=== PATIENT | male | born 1960 | race Caucasian/White ===

== ENCOUNTER 2017-09-21 09:48 | Emergency (ER) | payer MEDICARE ==
[2017-09-21] MEDS ORDERED: diPHENhydraMINE PO* 50 MG PO ONE (11:04)
[2017-09-21] MEDS ORDERED: Metoclopramide IV* 5 MG/ML 2 ML VIAL IV ONE (11:04)
[2017-09-21] MEDS ORDERED: NS 0.9% 1000 ML* 1,000 ML IV ONE (11:04)
[2017-09-21] MEDS ORDERED: Ketorolac INJ* 30 MG/ML 1 ML VIAL IV ONE (11:04)
[2017-09-21] MEDS ORDERED: diPHENhydraMINE IV* 50 MG/ML 1 ml VIAL (BENADRYL) ONE (11:20)
[2017-09-21] MEDS ORDERED: diPHENhydraMINE IV* 50 MG/ML 1 ml VIAL (BENADRYL) IV ONE (11:29)
[2017-09-21 13:02] VITALS: BP 115/77
--- NOTE | 2017-09-21 21:42 | ED ---
Jana Clement Thomas, scribed for Juan Manuel Banks MD on 09/21/17 at 1111 . Headache - HPI Summary HPI Summary: The patient is a 57 year old male with a history of migraines complaining of a migraine headache that began yesterday. The pain is located behinds his eyes, which is typical for his migraines. The pain is described as sharp. He also complains of nausea and photophobia. The patient denies nasal discharge or eye watering. His migraines are usually relieved within a day. He gets 1-2 migraines per month. He is on methotrexate and omeprazole. - History Of Current Complaint Chief Complaint: EDHeadache Stated Complaint: HEADACHE Time Seen by Provider: 09/21/17 10:40 Hx Obtained From: Patient Onset/Duration: Started days ago - 1, Still Present Currently Pain Is: Severe Timing: Constant Character: Sharp Location of Headache: Other: - Behind eyes Aggravating Factor: Bright Lights Allevating Factors: Nothing Associated Signs And Symptoms: Other (Noted In Comments) - Nausea, photophobia; NEGATIVE: nasal discharge, eye watering - Allergies/Home Medications Allergies/Adverse Reactions: Allergies Allergy/AdvReac Type Severity Reaction Status Date / Time No Known Allergies Allergy Verified 09/21/17 10:08 Home Medications: Home Medications DULoxetine DR CAP* [Cymbalta CAP*] 30 mg PO QAM 09/21/17 [History Confirmed 01/31] DULoxetine DR CAP* [Cymbalta CAP*] 60 mg PO QPM 09/21/17 [History Confirmed 01/31] PMH/Surg Hx/FS Hx/Imm Hx Endocrine/Hematology History: Denies: Hx Diabetes Cardiovascular History: Denies: Hx Hypertension, Hx Pacemaker/ICD Respiratory History: Reports: Hx Asthma - A CHILD, Other Respiratory Problems /Disorders - CHRONIC MAXILLARY SINUSITIS GI History: Reports: Hx Gastroesophageal Reflux Disease - CONTROL WITH MEDICATION History: Reports: Hx Kidney Infection - HISTORY OF Sensory History: Reports: Hx Contacts or Glasses, Hx Hearing Aid - WILL REMOVE, 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 2005 and 2008 LIPOMA REMOVED FROM CHEST AREA, [place]. 2009 SINOSCOPY- SINUS SCOPING, [place]. 2010 COLONOSCOPY, [facility] Hx Anesthesia Reactions: No Infectious Disease History: Unable to Obtain/Confirm Infectious Disease History: Denies: Hx Clostridium Difficile, Hx Hepatitis, Hx Human Immunodeficiency Virus (HIV), Hx of Known/Suspected MRSA, Hx Shingles, Hx Tuberculosis, Hx Known/ Suspected VRE, Hx Known/Suspected VRSA, History Other Infectious Disease, Traveled Outside the [place] in Last 30 Days - Family History Known Family History: Positive: Other - Patient denies relevant FHx - Social History Lives: With Family Alcohol Use: None Substance Use Type: Reports: None Smoking Status (MU): Never Smoked Tobacco Review of Systems Negative: Fever Positive: Photophobia. Negative: Other - eye discharge Negative: Nasal Discharge Positive: Nausea Positive: Headache All Other Systems Reviewed And Are Negative: Yes Physical Exam - Summary Physical Exam Summary: Appearance: The patient is well-nourished in no acute distress and in no acute pain. Skin: The skin is warm and dry and skin color reflects adequate perfusion. HEENT: The head is normocephalic and atraumatic. The pupils are equal and reactive. The conjunctivae are clear and without drainage. He has photophobia. Nares are patent and without drainage. Mouth reveals moist mucous membranes and the throat is without erythema and exudate. The external ears are intact. The ear canals are patent and without drainage. The tympanic membranes are intact. Neck: the neck is supple with full range of motion and non-tender. There are no carotid bruits. There is no neck vein distension. Respiratory: Chest is non-tender. Lungs are clear to auscultation and breath sounds are symmetrical and equal. Cardiovascular: Heart is regular rate and rhythm. There is no murmur or rub auscultated. There is no peripheral edema and pulses are symmetrical and equal. Abdomen: The abdomen is soft and non-tender. There are normal bowel sounds heard in all four quadrants and there is no organomegaly palpated. Musculoskeletal: There is no back tenderness noted. Extremities are non-tender with full range of motion. There is good capillary refill. There is no peripheral edema or calf tenderness elicited. Neurological: Patient is alert and oriented to person, place and time. The patient has symmetrical motor strength in all four extremities. Cranial nerves are grossly intact. Deep tendon reflexes are symmetrical and equal in all four extremities. Psychiatric: The patient has an appropriate affect and does not exhibit any anxiety or depression. Triage Information Reviewed: Yes Vital Signs On Initial Exam: Initial Vitals Temp Pulse Resp BP Pulse Ox 98.2 F 60 16 112/84 98 09/21/17 10:09 09/21/17 10:09 09/21/17 10:09 09/21/17 10:09/21/17 10:09 Vital Signs Reviewed: Yes Diagnostics - Vital Signs Vital Signs Temp Pulse Resp BP Pulse Ox 09/21/17 10:09 98.2 F 60 16 112/84 98 - Laboratory Lab Statement: Any lab studies that have been ordered have been reviewed, and results considered in the medical decision making process. Re-Evaluation - Re-Evaluation First Eval Re-Evaluation Time: 12:38 Change: Improved Comment: He feels better, but there is still pressue behind his eyes. He will be discharged home. Headache Course/Dx - Course Course Of Treatment: Mr Baez presented with a typical migraine. He is on methotrexate. He got a dose of a 'migraine cocktail' (toradol, benedryl and reglan) as well as IV NS. He improved completely and requested D/C. The ketorolac may transiently increase his methotrexate levels. - Diagnoses Provider Diagnoses: Migraine Discharge - Sign-Out/Discharge Documenting (check all that apply): Discharge/Admit/Transfer - Discharge Plan Condition: Stable Disposition: HOME Patient Education Materials: Migraine Headache (ED) Referrals: Moni Linares NP [Primary Care Provider] - 3 Days Additional Instructions: Follow up with your primary care physician in three days. Return to the emergency department for any new or worsening symptoms. - Billing Disposition and Condition Condition: STABLE Disposition: HOME The documentation as recorded by the Jana shoemaker Thomas accurately reflects the service I personally performed and the decisions made by me, Juan Manuel Banks MD.
== END 2017-09-21 12:59 | disposition home or self-care (01) ==
LOC: ED 09:48
DX: G43.909 Migraine, unspecified, not intractable, without status migrainosus (principal)
CPT/HCPCS: 96361; 96374; 96375; 99282; A9270-GY; J1200; J1885; J2765

== ENCOUNTER 2019-03-18 09:53 | Emergency (ER) | payer MEDICARE ==
[2019-03-18] MEDS ORDERED: Butalb/Acetamin/Caff TAB* 1 TAB PO ONE (12:40)
[2019-03-18] MEDS ORDERED: NS 0.9% 1000 ML** 1,000 ML IV ONE (12:40)
[2019-03-18] MEDS ORDERED: Ibuprofen TAB* 600 MG PO ONE (12:41)
[2019-03-18] MEDS ORDERED: Magnesium Sulfate 1 GM IV* 1 GM/100 ML BAG IV ONE (12:42)
--- NOTE | 2019-03-18 12:49 | ED ---
Headache - HPI Summary HPI Summary: This pt is a 58 Y/O M presenting to [facility] accompanied by his with a CC of a migraine that is currently rated a 8/10 in severity and started last night at 1700 and has been worsening since the onset. The migraine is located behind his eyes. He states that he is currently lightheaded and has floaters but states that it is worse than his usual migraines. He states that he has had a Hx of migraines and vertigo but states that this migraine is worse than his usual ones (but does feel similar to when he was admitted before). He denies any N/V, SOB, CP, and fevers. He states that he is currently photophobic and that light makes his headache worse, he also gets floaters with his usual migraines. 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 He has a Hx of headaches and migraines. - History Of Current Complaint Chief Complaint: EDHeadache Stated Complaint: HEADACHE Time Seen by Provider: 03/18/19 12:36 Hx Obtained From: Patient Onset/Duration: Sudden Onset - 1700 03/17/19, Started days ago - 1, Still Present , Worse Since - onset Initially Headache Was: Mild Currently Pain Is: Current Pain Scale(0-10)= Timing: Constant Character: Pressure, Migraine Location of Headache: Frontal Aggravating Factor: Bright Lights Allevating Factors: Nothing Associated Signs And Symptoms: Negative - N/V, SOB, CP, and fevers, Sinus Pressure, Visual Changes - floaters, Other (Noted In Comments) - photophobia, lightheaded - Allergies/Home Medications Allergies/Adverse Reactions: Allergies Allergy/AdvReac Type Severity Reaction Status Date / Time No Known Allergies Allergy Verified 03/18/19 10:14 PMH/Surg Hx/FS Hx/Imm Hx Previously Healthy: Yes Endocrine/Hematology History: Denies: Hx Diabetes Cardiovascular History: Denies: Hx Hypertension, Hx Pacemaker/ICD Respiratory History: Reports: Hx Asthma - A CHILD, Other Respiratory Problems /Disorders - CHRONIC MAXILLARY SINUSITIS GI History: Reports: Hx Gastroesophageal Reflux Disease - CONTROL WITH MEDICATION History: Reports: Hx Kidney Infection - HISTORY OF Denies: Hx Dialysis Sensory History: Reports: Hx Contacts or Glasses, Hx Hearing Aid - WILL REMOVE, 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 2005 and 2008 LIPOMA REMOVED FROM CHEST AREA, [place]. 2009 SINOSCOPY- SINUS SCOPING, [place]. 2010 COLONOSCOPY, [facility] Hx Anesthesia Reactions: No Infectious Disease History: No Infectious Disease History: Denies: Hx Clostridium Difficile, Hx Hepatitis, Hx Human Immunodeficiency Virus (HIV), Hx of Known/Suspected MRSA, Hx Shingles, Hx Tuberculosis, Hx Known/ Suspected VRE, Hx Known/Suspected VRSA, History Other Infectious Disease, Traveled Outside the [place] in Last 30 Days - Family History Known Family History: Positive: Other - Patient denies relevant FHx - Social History Occupation: Retired Lives: With Family Alcohol Use: None Hx Substance Use: No Substance Use Type: Reports: None Hx Tobacco Use: No Smoking Status (MU): Never Smoked Tobacco Review of Systems Constitutional: Other - lightheadedness Negative: Fever Positive: Photophobia, Other - floaters Negative: Chest Pain Negative: Shortness Of Breath Negative: Vomiting, Nausea Positive: Headache All Other Systems Reviewed And Are Negative: Yes Physical Exam - Summary Physical Exam Summary: Constitutional: Well-developed, Well-nourished, Alert. (-) Distressed Skin: Warm, Dry HENT: Normocephalic; Atraumatic Eyes: Conjunctiva normal Neck: Musculoskeletal ROM normal neck. (-) JVD, (-) Stridor, (-) Nuchal rigidity Cardio: Rhythm regular, rate normal, Heart sounds normal; Intact distal pulses; Radial pulses are 2+ and symmetric. (-) Murmur Pulmonary/Chest wall: Effort normal. (-) Respiratory distress, (-) Wheezes, (-) Rales Abd: Soft, (-) tenderness, (-) Distension, (-) Guarding, (-) Rebound Musculoskeletal: (-) Edema Lymph: (-) Cervical adenopathy Neuro: Alert, Oriented x3, CN 2-12 grossly intact. No nystagmus, no dysmetria. Ambulates w steady gait. Psych: Mood and affect Normal Triage Information Reviewed: Yes Vital Signs On Initial Exam: Initial Vitals Temp Pulse Resp BP Pulse Ox 98.0 F 66 16 114/81 99 03/18/19 10:10 03/18/19 10:10 03/18/19 10:10 03/18/19 10:10 03/18/19 10:10 Vital Signs Reviewed: Yes Procedures - Sedation Patient Received Moderate/Deep Sedation with Procedure: No Diagnostics - Vital Signs Vital Signs Temp Pulse Resp BP Pulse Ox 03/18/19 11:42 97.6 F 63 14 112/80 97 03/18/19 10:10 98.0 F 66 16 114/81 99 - Laboratory Lab Statement: Any lab studies that have been ordered have been reviewed, and results considered in the medical decision making process. Re-Evaluation - Re-Evaluation 1 Re-Evaluation Time: 14:47 Change: Improved Comment: Pt states that he is feeling much better and expressed a desire to be discharged home. Headache Course/Dx - Course Course Of Treatment: 58 y/o male w hx migraines p/w migriane headache. History of headaches of similar type. This is not the worst headache patient has had, and no additional features today to suggest need for further workup on a truly emergent basis (imaging, LP, etc). Try IVF, motrin, reglan, Mg. - Diagnoses Provider Diagnoses: Migraine Discharge ED - Sign-Out/Discharge Documenting (check all that apply): Patient Departure - discharge - Discharge Plan Condition: Stable Disposition: HOME Patient Education Materials: Migraine Headache (ED) Referrals: Cody Giraldo MD [Primary Care Provider] - Additional Instructions: You were seen in ER for migraine headache. Please follow up with your neurologist. Please from for worsening of your headache, severe headaches, nausea vomiting, fevers or if you're concerned. It was a pleasure taking care of you today. - Billing Disposition and Condition Condition: STABLE Disposition: Home - Attestation Statements Document Initiated by Scribe: Yes Documenting Scribe: Lex Singh Provider For Whom Beronica is Documenting (Include Credential): Rosa Elena Figueroa MD Scribe Attestation: Lex Clement, scribed for Rosa Elena Figueroa MD on 03/18/19 at 1515. Scribe Documentation Reviewed: Yes Provider Attestation: The documentation as recorded by the Lex shoemakeranto accurately reflects the service I personally performed and the decisions made by me, Rosa Elena Figueroa MD Status of Beronica Document: Viewed
[2019-03-18] MEDS ORDERED: diPHENhydraMINE IV* 50 MG/ML 1 ml VIAL (BENADRYL) SLOW PUSH ONE (13:47)
[2019-03-18] MEDS ORDERED: guaiFENesin ER TAB 600 MG PO ONE (14:22)
[2019-03-18 15:05] VITALS: BP 120/80
== END 2019-03-18 15:03 | disposition home or self-care (01) ==
LOC: ED 09:53
DX: G43.909 Migraine, unspecified, not intractable, without status migrainosus (principal); K21.9 Gastro-esophageal reflux disease without esophagitis; F41.9 Anxiety disorder, unspecified
CPT/HCPCS: 96365; 96375; 99283; A9270-GY; J1200; J3475

== ENCOUNTER 2019-04-21 16:25 | Emergency (ER) | payer MEDICARE ==
[2019-04-21] MEDS ORDERED: diPHENhydraMINE IV* 50 MG/ML 1 ml VIAL (BENADRYL) IV ONE (19:35)
[2019-04-21] MEDS ORDERED: PROCHLORPERAZINE INJ 5 MG/ML 2 ML VIAL IV ONE (19:35)
[2019-04-21] MEDS ORDERED: NS 0.9% 1000 ML** 1,000 ML IV ONE (19:36)
[2019-04-21] MEDS ORDERED: Ketorolac INJ* 30 MG/ML 1 ML VIAL IV PUSH ONE (19:36)
--- NOTE | 2019-04-21 19:48 | ED ---
Headache - HPI Summary HPI Summary: 58 year old male presents with headache for the past couple days. He has a history of migraines. He states he had a similar headaches about a month ago. this is not the worst headache of his life. He states she's been having sinus congestion for the past couple weeks. He states that headache is in same location as typical migraines. He has been taking Mucinex without improvement in sinus congestion but it does not improve the headache. he denies any fever. no neck stiffness. He also has been issues with his right shoulder as his cortisone shot has wore off and things this is contributing to this headache. - History Of Current Complaint Chief Complaint: EDHeadache Stated Complaint: HEADACHE PER PT Time Seen by Provider: 04/21/19 19:28 - Allergies/Home Medications Allergies/Adverse Reactions: Allergies Allergy/AdvReac Type Severity Reaction Status Date / Time No Known Allergies Allergy Verified 04/21/19 16:31 PMH/Surg Hx/FS Hx/Imm Hx Endocrine/Hematology History: Denies: Hx Diabetes Cardiovascular History: Denies: Hx Hypertension, Hx Pacemaker/ICD Respiratory History: Reports: Hx Asthma - A CHILD, Other Respiratory Problems /Disorders - CHRONIC MAXILLARY SINUSITIS GI History: Reports: Hx Gastroesophageal Reflux Disease - CONTROL WITH MEDICATION History: Reports: Hx Kidney Infection - HISTORY OF Denies: Hx Dialysis Sensory History: Reports: Hx Contacts or Glasses, Hx Hearing Aid - WILL REMOVE, 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 2005 and 2008 LIPOMA REMOVED FROM CHEST AREA, [place]. 2009 SINOSCOPY- S[place]US SCOPING, [facility]. [place] [facility] [place] Anesthesia Reactions: No Infectious Disease History: No Infectious Disease History: Denies: Hx Clostridium Difficile, Hx Hepatitis, Hx Human Immunodeficiency Virus (HIV), Hx of Known/Suspected MRSA, Hx Shingles, Hx Tuberculosis, Hx Known/ Suspected VRE, Hx Known/Suspected VRSA, History Other Infectious Disease, Traveled Outside the [place] in Last 30 Days - Family History Known Family History: Positive: Other - Patient denies relevant FHx - Social History Alcohol Use: None Hx Substance Use: No Substance Use Type: Reports: None Hx Tobacco Use: No Smoking Status (MU): Never Smoked Tobacco Review of Systems Negative: Fever Negative: Chest Pain Negative: Shortness Of Breath Positive: Headache All Other Systems Reviewed And Are Negative: Yes Physical Exam Triage Information Reviewed: Yes Vital Signs On Initial Exam: Initial Vitals Temp Pulse Resp BP Pulse Ox 97.3 F 55 16 136/90 100 04/21/19 16:27 04/21/19 16:27 04/21/19 16:27 04/21/19 16:27 04/21/19 16:27 Vital Signs Reviewed: Yes Appearance: Positive: Well-Appearing Skin: Positive: Warm, Dry Head/Face: Positive: Normal Head/Face Inspection Eyes: Positive: Normal, EOMI, PINKY, Conjunctiva Clear ENT: Positive: Normal ENT inspection, Pharynx normal, TMs normal Respiratory/Lung Sounds: Positive: Clear to Auscultation, Breath Sounds Present Cardiovascular: Positive: Normal, RRR Abdomen Description: Positive: Nontender, Soft Bowel Sounds: Positive: Present Musculoskeletal: Positive: Normal Neurological: Positive: Sensory/Motor Intact, Alert, Oriented to Person Place, Time, CN Intact II-III, Finger to Nose Psychiatric: Positive: Normal Procedures - Sedation Patient Received Moderate/Deep Sedation with Procedure: No Diagnostics - Vital Signs Vital Signs Temp Pulse Resp BP Pulse Ox 04/21/19 18:19 97.7 F 60 16 127/85 98 04/21/19 16:27 97.3 F 55 16 136/90 100 - Laboratory Lab Statement: Any lab studies that have been ordered have been reviewed, and results considered in the medical decision making process. Re-Evaluation - Re-Evaluation First Eval Re-Evaluation Time: 20:56 Change: Improved Comment: pain improved now 3 out of 10 days Second Eval Re-Evaluation Time: 21:50 Change: Improved Comment: symptoms resolved Headache Course/Dx - Course Course Of Treatment: 58 year old male presents with headache for the past couple days. He has a history of migraines. He states he had a similar headaches about a month ago. this is not the worst headache of his life. He states she's been having sinus congestion for the past couple weeks. He states that headache is in same location as typical migraines. He has been taking Mucinex without improvement in sinus congestion but it does not improve the headache. he denies any fever. no neck stiffness. He also has been issues with his right shoulder as his cortisone shot has wore off and things this is contributing to this headache. On exam has normal neuro exam. gave compazine, benadryl, toradol and some improvement. still has pressure behind ears will treat with decadron and mg. - Diagnoses Differential Diagnosis/HQI/PQRI: Migraine, Sinus Headache, Tension Headache Provider Diagnoses: Headache Discharge ED - Sign-Out/Discharge Documenting (check all that apply): Patient Departure - Discharge Plan Condition: Good Disposition: HOME Patient Education Materials: Acute Headache (ED) Referrals: Cody Giraldo MD [Primary Care Provider] - Additional Instructions: take Tylenol every 6 hours as needed for headache follow up with primary within 5 days Return to ED if develop any new or worsening symptoms - Billing Disposition and Condition Condition: GOOD Disposition: Home
[2019-04-21] MEDS ORDERED: Magnesium Sulfate 1 GM IV* 1 GM/100 ML BAG IV ONE (20:55)
[2019-04-21] MEDS ORDERED: Dexamethasone IV* 4 MG/ML 1 ML (4 MG) IV SLOW PU ONE (20:55)
[2019-04-21 21:59] VITALS: BP 125/71
== END 2019-04-21 21:59 | disposition home or self-care (01) ==
LOC: ED 16:25
DX: R51 Headache (principal); J45.909 Unspecified asthma, uncomplicated; K21.9 Gastro-esophageal reflux disease without esophagitis; F41.9 Anxiety disorder, unspecified
CPT/HCPCS: 96361; 96365; 96375; 99282; J0780; J1100; J1200; J1885; J3475

== ENCOUNTER 2021-12-02 13:35 | Observation (INO) ==
[2021-12-02] MEDS ORDERED: NS 0.9% 1000 ml BAG 1,000 ML IV ONE ×2 (14:21→16:02)
[2021-12-02 15:17] LABS: ABS Eosinophils 0.1 10^3/ul (0-0.6); ABS Lymphocytes 2.1 10^3/ul (1.0-4.8); ABS Monocytes 0.5 10^3/ul (0-0.8); ABS Neutrophils 3.8 10^3/ul (1.5-7.7); Hematocrit 44 % (42-52); Hemoglobin 14.3 g/dL (14.0-18.0); Lymphocyte % 31.8 %; Mean Corpuscular HGB Conc 33 g/dL (31-36); Mean Corpuscular Hemoglobin 31 pg (27-31); Mean Corpuscular Volume 94 fL (80-94); Mean Platelet Volume 7.8 fL (7.4-10.4); Nucleated Red Blood Cells % 0.2; Platelet Count 191 10^3/uL (150-450); Red Blood Count 4.62 10^6 /uL (4.18-5.48); Red Cell Distribution Width 15 % (10-15); White Blood Count 6.6 10^3/uL (3.5-10.8)
[2021-12-02 15:33] LABS: Activated Partial Thrombo Time 31.1 seconds (26.0-38.0); INR 0.97 (0.89-1.11)
[2021-12-02 16:01] LABS: Urine Appearance Clear; Urine Bilirubin Negative (Negative); Urine Blood Negative (Negative); Urine Color Yellow; Urine Glucose Negative (Negative); Urine Ketones Negative (Negative); Urine Nitrite Negative (Negative); Urine Protein Negative (Negative); Urine Specific Gravity <=1.005 (1.005-1.030); Urine Urobilinogen 0.2 (Negative) (Negative); Urine pH 5.5 (5.0-9.0)
[2021-12-02 16:19] LABS: Albumin 3.7 g/dL (3.2-5.2); Albumin/Globulin Ratio 1.7 (1-3); Calcium 8.7 mg/dL (8.6-10.3); Globulin 2.2 g/dL (2-4); HDL Cholesterol 43.8 mg/dL; Potassium 4.5 mmol/L (3.5-5.0); Total Bilirubin 0.5 mg/dL (0.2-1.0); Total Protein 5.9 g/dL (6.4-8.9); eGFR CKD-EPI 86.7 (>60)
[2021-12-02] MEDS: DULoxetine DR 60 mg CAP PO SCH (21:42)
[2021-12-03] MEDS ORDERED: Pneumococcal Vac 23-Polyvalent IM ONE (09:00)
[2021-12-03] MEDS: DULoxetine DR 60 mg CAP PO SCH (09:52)
[2021-12-03 12:27] VITALS: BP 119/72
== END 2021-12-03 13:39 | disposition home or self-care (01) ==
LOC: ED 13:35 → EDHOLD 13:35 → MEDTELE 18:48
PROVIDERS: ADMIT Internal Medicine; ATTEND Internal Medicine